=== PATIENT | female | born 1940 | race Caucasian/White ===

== ENCOUNTER 2020-10-04 12:47 | Emergency (ER) | payer MEDICARE ==
[~2020-10-04] VITALS: Ht 157.5 cm; Wt 40.8 kg
[2020-10-04 12:58] VITALS: BP_SYST 135
[2020-10-04] MEDS ORDERED: NACL 0.9% 1,000 ML IV ONE (13:30)
[2020-10-04 13:40] LABS: BASOPHILS % (AUTO) 0.1 % (0.0-2.0); EOSINOPHILS # (AUTO) 0.1 K/uL (0.0-0.4); EOSINOPHILS % (AUTO) 1.5 % (0.0-4.0); HEMATOCRIT 48.6 % (36-48); HEMOGLOBIN 16.6 g/dL (12.0-16.0); LYMPHOCYTES # (AUTO) 1.1 K/uL (1.0-5.5); LYMPHOCYTES % (AUTO) 11.2 % (20.5-51.5); MEAN CORPUSCULAR HEMOGLOBIN 30 pg (27-31); MEAN CORPUSCULAR HGB CONC 34 % (32-36); MEAN CORPUSCULAR VOLUME 89 fL (79.0-98.0); MONOCYTES # (AUTO) 0.7 K/uL (0.0-1.0); MONOCYTES % (AUTO) 7.4 % (1.7-9.3); NEUTROPHILS # (AUTO) 7.6 K/uL (1.8-7.7); NEUTROPHILS % (AUTO) 79.8 % (40.0-70.0); PLATELET COUNT (AUTO) 210 K/uL (130-430); RED BLOOD CELL COUNT(AUTO) 5.46 MIL/uL (4.2-6.2); RED CELL DISTRIBUTION WIDTH 13.8 % (9.0-15.0); WHITE BLOOD COUNT (AUTO) 9.5 K/uL (4.8-10.8)
[2020-10-04 13:42] LABS: ANION GAP 7 (5-15); CALCIUM 9.5 mg/dL (8.4-11.0); CHLORIDE 107 mmol/L (98-107); CREATININE 0.69 mg/dL (0.55-1.30); GLUCOSE 108 mg/dL (70-99); POTASSIUM 3.7 mmol/L (3.5-5.1); SODIUM SERUM 147 mmol/L (136-145); UREA NITROGEN, BLOOD 24 mg/dL (8-21)
[2020-10-04 13:48] LABS: ALANINE AMINOTRANSFERASE 75 U/L (12-78); ALBUMIN 3.3 g/dL (3.4-4.8); ASPARTATE AMINOTRANSFERASE 60 U/L (10-37); TOTAL BILIRUBIN 1.2 mg/dL (0.0-1.0)
[2020-10-04 14:11] LABS: CKMB RELATIVE INDEX 2.3 (0.0-2.9); CREATINE KINASE MB 20.8 ng/mL (0-3.6)
[2020-10-04 15:26] LABS: BILIRUBIN,URINE NEGATIVE (NEGATIVE); CLARITY/URINE CLOUDY (CLEAR); COLOR,URINE YELLOW (YELLOW); GLUCOSE,URINE NEGATIVE (NEGATIVE); KETONES,URINE 2+ (NEGATIVE); LEUKOCYTE ESTERASE ,URINE TRACE (NEGATIVE); NITRITE, URINE POSITIVE (NEGATIVE); PROTEIN URINE 1+ (NEGATIVE)
[2020-10-04 15:30] LABS: BLOOD, URINE TRACE (NEGATIVE)
[2020-10-04 15:36] LABS: BACTERIA,URINE MANY /HPF (None Seen)
[2020-10-04 15:37] LABS: MUCUS,URINE None Seen /LPF (None Seen)
[2020-10-04] MEDS ORDERED: QUET50TA15 PO (15:49)
[2020-10-04] MEDS ORDERED: SIMV-43 PO (15:49)
[2020-10-04] MEDS ORDERED: PRO20 PO (15:49)
[2020-10-04] MEDS ORDERED: DONE10TA4 PO (15:49)
[2020-10-04 18:18] VITALS: BP_SYST 123
== END 2020-10-04 18:18 | disposition short-term general hospital (02) ==
LOC: SED 12:47
DX: M62.82 Rhabdomyolysis (principal); N39.0 Urinary tract infection, site not specified; R53.1 Weakness; Z79.899 Other long term (current) drug therapy; Z20.822 Contact with and (suspected) exposure to COVID-19
CPT/HCPCS: 36415; 70450; 71045; 76376; 80053; 81000; 82550; 82553; 83880; 84484; 85025; 87086; 87426; 93005; 96360; 99285; J7030

== ENCOUNTER 2020-12-19 19:37 | Emergency (ER) | payer MEDICARE ==
[~2020-12-19] VITALS: Ht 160 cm; Wt 63.5 kg
[~2020-12-19 19:37] MED LIST: DONE10TA4 PO; PRO20 PO; QUET50TA15 PO; SIMV-43 PO
--- NOTE | 2020-12-19 19:43 | NUR ---
Pt BIB EMS, accompanied by son. Son states that pt was found having a fever of 100 degrees. [place] and states he is having some conserns after seeing her deterioration since last time he saw her a few months ago.
--- NOTE | 2020-12-19 19:45 | NUR ---
Dr. Lewis at the bedside evaluating pt.
[2020-12-19 19:50] VITALS: BP_SYST 91
--- NOTE | 2020-12-19 20:00 | NUR ---
Chest xray at the bedside.
--- NOTE | 2020-12-19 20:03 | NUR ---
EKG at the bedside.
--- NOTE | 2020-12-19 20:30 | NUR ---
Lab draws obtained, pt tolerated well.
[2020-12-19 20:51] LABS: BASOPHILS % (AUTO) 0.1 % (0.0-2.0); EOSINOPHILS # (AUTO) 0.3 K/uL (0.0-0.4); EOSINOPHILS % (AUTO) 3.6 % (0.0-4.0); HEMATOCRIT 35.8 % (36-48); HEMOGLOBIN 11.9 g/dL (12.0-16.0); LYMPHOCYTES # (AUTO) 1.5 K/uL (1.0-5.5); LYMPHOCYTES % (AUTO) 17.5 % (20.5-51.5); MEAN CORPUSCULAR HEMOGLOBIN 28 pg (27-31); MEAN CORPUSCULAR HGB CONC 33 % (32-36); MEAN CORPUSCULAR VOLUME 85 fL (79.0-98.0); MONOCYTES # (AUTO) 0.6 K/uL (0.0-1.0); MONOCYTES % (AUTO) 6.8 % (1.7-9.3); NEUTROPHILS # (AUTO) 6.1 K/uL (1.8-7.7); PLATELET COUNT (AUTO) 328 K/uL (130-430); RED BLOOD CELL COUNT(AUTO) 4.23 MIL/uL (4.2-6.2); RED CELL DISTRIBUTION WIDTH 15.7 % (9.0-15.0); WHITE BLOOD COUNT (AUTO) 8.4 K/uL (4.8-10.8)
[2020-12-19 21:07] LABS: ANION GAP 7 (5-15); CALCIUM 8.6 mg/dL (8.4-11.0); CHLORIDE 102 mmol/L (98-107); CREATININE 0.49 mg/dL (0.55-1.30); GLUCOSE 116 mg/dL (70-99); POTASSIUM 3.9 mmol/L (3.5-5.1); SODIUM SERUM 138 mmol/L (136-145); UREA NITROGEN, BLOOD 6 mg/dL (8-21)
[2020-12-19 21:12] LABS: ALANINE AMINOTRANSFERASE 18 U/L (12-78); ALBUMIN 2.1 g/dL (3.4-4.8); ASPARTATE AMINOTRANSFERASE 14 U/L (10-37); TOTAL BILIRUBIN 0.2 mg/dL (0.0-1.0)
[2020-12-19 21:14] LABS: PROTHROMBIN TIME 10.9 SECS (9.5-12.5)
--- NOTE | 2020-12-19 21:18 | NUR ---
Pt laying in gurney. Pt denies any pain. No s/s of distress noted. Son Cornelio continues to be at the bedside.
--- NOTE | 2020-12-19 22:20 | NUR ---
Straight cath done for UA collection, pt tolerated well.
[2020-12-19 22:53] LABS: BILIRUBIN,URINE NEGATIVE (NEGATIVE); BLOOD, URINE NEGATIVE (NEGATIVE); COLOR,URINE YELLOW (YELLOW); GLUCOSE,URINE NEGATIVE (NEGATIVE); KETONES,URINE NEGATIVE (NEGATIVE); LEUKOCYTE ESTERASE ,URINE 3+ (NEGATIVE); NITRITE, URINE POSITIVE (NEGATIVE); PH,URINE 5.5 (5.0-8.0); PROTEIN URINE NEGATIVE (NEGATIVE); UROBILINOGEN,URINE 0.2 (0.2-1.0)
[2020-12-19 22:54] LABS: CLARITY/URINE HAZY (CLEAR)
[2020-12-19 22:59] LABS: BACTERIA,URINE MANY /HPF (None Seen); RBC,URINE 0-3 /HPF (0-3); WBC,URINE 20-50 /HPF (0-3)
--- NOTE | 2020-12-19 23:00 | NUR ---
# 20 gauge angiocath placed to right forearm. Use of asceptic technique. Opsite placed over site. Blood return noted. Blood for lab drawn from site. Flushed with 10 cc of normal saline. No evidence of infiltration noted. Patient tolerated well.
--- NOTE | 2020-12-20 00:50 | NUR ---
Pt laying in gurney, denies any pain. VS WNL. Son Cornelio at the bedside.
[2020-12-20] MEDS ORDERED: cefTRIAXone 1 GM in D5W 50 ML IV ONE (03:45)
--- NOTE | 2020-12-20 03:45 | NUR ---
Pt laying in gurney sleeping, no s/s of distress noted. VS WNL.
--- NOTE | 2020-12-20 05:58 | NUR ---
Pt laying in gurney with eyes closed, pt denies any pain. VS WNL.
--- NOTE | 2020-12-20 06:16 | NUR ---
Transport arrived, endorsed SBAR report to transport team and provided paperwork and belongings. Pt's VS WNL. Called [facility] to provided ETA.
[2020-12-20 06:18] VITALS: BP_SYST 130
== END 2020-12-20 06:18 ==
LOC: SED 19:37
DX: R62.7 Adult failure to thrive (principal); N39.0 Urinary tract infection, site not specified; Z79.899 Other long term (current) drug therapy; Z68.24 Body mass index [BMI] 24.0-24.9, adult; Z20.822 Contact with and (suspected) exposure to COVID-19
CPT/HCPCS: 36415; 71045; 80053; 81000; 82550; 83605; 84484; 85025; 85610-TC; 85730-TC; 86140; 87040-TC; 87086; 93005; 99285

== ENCOUNTER 2020-12-25 17:19 | Emergency (ER) | payer MEDICARE ==
[~2020-12-25] VITALS: Ht 157.5 cm; Wt 49.9 kg
[2020-12-25 17:20] VITALS: BP_SYST 110
--- NOTE | 2020-12-25 17:20 | NUR ---
Pt came to ER for fever x1 week, EMS states pt has UTI recently and completed antibiotic course. Pt does not complain of pain or discomfort at this time, pt AOx2.
--- NOTE | 2020-12-25 17:20 | NUR ---
Patient to ER bed 7 to gown for evaluation. Side rails up.
--- NOTE | 2020-12-25 17:30 | NUR ---
RONY Argueta at bedside examining patient.
[2020-12-25] MEDS: LR 1,000 ML IV ONE (18:37)
[2020-12-25 18:40] LABS: BILIRUBIN,URINE NEGATIVE (NEGATIVE); BLOOD, URINE NEGATIVE (NEGATIVE); COLOR,URINE YELLOW (YELLOW); GLUCOSE,URINE NEGATIVE (NEGATIVE); KETONES,URINE NEGATIVE (NEGATIVE); LEUKOCYTE ESTERASE ,URINE NEGATIVE (NEGATIVE); NITRITE, URINE NEGATIVE (NEGATIVE); PH,URINE 8.5 (5.0-8.0); PROTEIN URINE TRACE (NEGATIVE)
--- NOTE | 2020-12-25 18:40 | NUR ---
Pt given ice packs, blankets taken off and pt VSS
[2020-12-25 18:42] LABS: CLARITY/URINE HAZY (CLEAR)
[2020-12-25 18:44] LABS: PROTHROMBIN TIME 10.2 SECS (9.5-12.5)
[2020-12-25 18:49] LABS: BASOPHILS % (AUTO) 0.2 % (0.0-2.0); EOSINOPHILS # (AUTO) 0.1 K/uL (0.0-0.4); EOSINOPHILS % (AUTO) 1.4 % (0.0-4.0); HEMATOCRIT 30.9 % (36-48); HEMOGLOBIN 10.4 g/dL (12.0-16.0); LYMPHOCYTES # (AUTO) 1.1 K/uL (1.0-5.5); LYMPHOCYTES % (AUTO) 13.1 % (20.5-51.5); MEAN CORPUSCULAR HEMOGLOBIN 28 pg (27-31); MEAN CORPUSCULAR HGB CONC 34 % (32-36); MEAN CORPUSCULAR VOLUME 84 fL (79.0-98.0); MONOCYTES # (AUTO) 0.6 K/uL (0.0-1.0); MONOCYTES % (AUTO) 7.4 % (1.7-9.3); NEUTROPHILS # (AUTO) 6.8 K/uL (1.8-7.7); NEUTROPHILS % (AUTO) 77.9 % (40.0-70.0); PLATELET COUNT (AUTO) 306 K/uL (130-430); RED BLOOD CELL COUNT(AUTO) 3.67 MIL/uL (4.2-6.2); RED CELL DISTRIBUTION WIDTH 15.6 % (9.0-15.0); WHITE BLOOD COUNT (AUTO) 8.7 K/uL (4.8-10.8)
[2020-12-25] MEDS ORDERED: MEROPENEM 500 MG VIAL IV ONE ×2 (18:49→18:54)
[2020-12-25 18:59] LABS: ANION GAP 6 (5-15); CALCIUM 8.2 mg/dL (8.4-11.0); CHLORIDE 102 mmol/L (98-107); CREATININE 0.39 mg/dL (0.55-1.30); GLUCOSE 107 mg/dL (70-99); POTASSIUM 3.8 mmol/L (3.5-5.1); SODIUM SERUM 137 mmol/L (136-145); UREA NITROGEN, BLOOD 15 mg/dL (8-21)
[2020-12-25 19:03] LABS: ALANINE AMINOTRANSFERASE 17 U/L (12-78); ALBUMIN 1.9 g/dL (3.4-4.8); ASPARTATE AMINOTRANSFERASE 16 U/L (10-37); BILIRUBIN,DIRECT < 0.1 mg/dL (0.0-0.3); LIPASE 79 U/L (73-393); TOTAL BILIRUBIN 0.3 mg/dL (0.0-1.0)
--- NOTE | 2020-12-25 19:10 | NUR ---
Pt IV site changed covered with tegaderm and coban, IV abx administered
[2020-12-25] MEDS: MEROPENEM 1 GM IVPB PREMIX 50 ML IV ONE (19:15)
--- NOTE | 2020-12-25 20:31 | NUR ---
PT TAKEN TO CT SCAN VIA GURNEY BY RADIOLOGY STAFF.
[2020-12-25] MEDS: ACETAMINOPHEN 325 MG TABLET PO ONE (20:36)
--- NOTE | 2020-12-25 22:00 | NUR ---
Patient resting quietly. No acute distress noted. Vital signs within normal range.
--- NOTE | 2020-12-26 01:39 | NUR ---
Patient resting quietly. No acute distress noted. Vital signs within normal range.
[2020-12-26 05:05] VITALS: BP_SYST 112
--- NOTE | 2020-12-26 05:34 | NUR ---
TPatient to be transferred to [facility]. Is being transferred due to higher level of care. Receiving facility has accepting physician and available space. ER physician has signed transfer form. Patient or responsible constitution party has agreed to transfer and signed form. Patient belongings inventoried and will be sent with patient. Copy of nursing notes, lab reports, EKG, Physicians Orders and X-rays to be sent with patient. Report called to CARLOS GARCIA at receiving facility. Receiving physician is LOVE. [facility] has been called for transfer. ETA is [id number].
== END 2020-12-26 05:05 | disposition short-term general hospital (02) ==
LOC: SED 17:19
DX: R50.9 Fever, unspecified (principal); Z20.822 Contact with and (suspected) exposure to COVID-19; Z79.899 Other long term (current) drug therapy
CPT/HCPCS: 36415; 70450; 71045; 76376; 80048; 80076; 81003; 82550; 83605; 83690; 83880; 84484; 85025; 85610; 87040; 87426; 93005; 96361; 96365; 99285; J2185